=== PATIENT | male | born 2000 | race Caucasian/White ===

== ENCOUNTER 2019-04-30 15:04 | Outpatient (CLI) | payer BC | END 2019-04-30 15:05 | disposition home or self-care (01) | LOC: CTENTCT 15:04 | PROVIDERS: ATTEND Otolaryngology Plastic Surgery within the Head & Neck | DX: J01.81 Other acute recurrent sinusitis (principal) | CPT/HCPCS: 70486 ==

== ENCOUNTER 2019-05-13 10:35 | Day surgery (SDC) | payer BC ==
[2019-05-12 13:34] VITALS: BMI 21.7
[2019-05-13] MEDS ORDERED: Fentanyl 250 MCG/5 ML VIAL ONE (10:47)
[2019-05-13] MEDS ORDERED: Oxymetazoline HCl 0.05% ( 15 ML ) ONE ×2 (11:40→13:10)
[2019-05-13] MEDS ORDERED: Midazolam HCl 2 mg/2 ml Vial ONE (13:08)
[2019-05-13] MEDS ORDERED: Lidocaine 1% w/Epinephrine 1:100K 20 ML VIAL ONE (13:10)
[2019-05-13] MEDS ORDERED: Bacitracin Zinc Ointment 30 gm TUBE ONE (13:10)
[2019-05-13] MEDS ORDERED: Ondansetron PF 4 MG/2 ML Vial ONE (16:44)
[2019-05-13] MEDS ORDERED: Glycopyrrolate 0.2 MG/ML 5 ML SYRINGE ONE (16:44)
[2019-05-13] MEDS ORDERED: PROPOFOL 200 MG/20 ML VIAL ONE (16:44)
[2019-05-13] MEDS ORDERED: Lidocaine 1% PF 5 ML VIAL ONE (16:44)
[2019-05-13] MEDS ORDERED: Dexamethasone 20 MG/5 ML VIAL ONE (16:44)
[2019-05-13] MEDS ORDERED: Ketorolac Tromethamine 30 MG/ML VIAL ONE (16:44)
[2019-05-13] MEDS ORDERED: Rocuronium Bromide 10 MG/ML (10ML VIAL) ONE (16:44)
[2019-05-13] MEDS ORDERED: PHENYLEPHRINE-NS 100 MCG/ML 10 ML SYRINGE ONE (16:44)
--- NOTE | 2019-05-14 09:56 | OP ---
DATE OF PROCEDURE: 05/13/2019 PREOPERATIVE DIAGNOSES: 1. Right chronic rhinosinusitis. 2. Bilateral nasal polyposis. 3. Allergic fungal sinusitis. 4. Nasal septal deviation. 5. Bilateral inferior turbinate hypertrophy. POSTOPERATIVE DIAGNOSES: 1. Right chronic rhinosinusitis. 2. Bilateral nasal polyposis. 3. Allergic fungal sinusitis. 4. Nasal septal deviation. 5. Bilateral inferior turbinate hypertrophy. PROCEDURES PERFORMED: 1. Bilateral endoscopic sinus surgery, total ethmoidectomies with removal of tissue. 2. Bilateral endoscopic sinus surgery, maxillary antrostomies with removal of tissue. 3. Bilateral endoscopic sinus surgery, sphenoidotomies with removal of tissue. 4. Bilateral endoscopic sinus surgery, frontal sinusotomies with removal of tissue. 5. Nasal septoplasty. 6. Bilateral inferior turbinate submucosal resection. 7. LandmarX stereotactic navigational surgery. ESTIMATED BLOOD LOSS: 50 mL. COMPLICATIONS: None. ANESTHESIA: GETA. DESCRIPTION OF PROCEDURE: Patient was taken to the operating room and placed supine on the table. General endotracheal anesthesia was obtained by the anesthesia staff. Tube was secured in the left lower lip. Patient was then placed in the beach chair position, and Afrin pledgets were placed in the nasal cavity. Injections of 1% lidocaine with 1:100,000 epinephrine were made into the nasal septum as well as the inferior turbinates. Patient was then prepped and draped in standard surgical fashion for nasal surgery. Following this, the Afrin pledgets were removed. A Brenton incision was made on the left nasal septum. Submucoperichondrial dissection was performed. The deviated portions of the septum included portions of the cartilage and the bony septum. These isolated areas were removed using 3 cutting rongeurs. There was noted to be a large dorsal and caudal strut, left intact for support of the nose. The mucoperichondrial flaps were then reapproximated using a 4-0 gut stitch. Any straight pieces of cartilage were crushed prior to this and placed between the mucoperichondrial flaps. Following this, the inferior turbinates were then punctured with a submucosal coblation wand, and submucosal coblations were performed of multiple areas of the inferior portion of the anterior inferior turbinate. Following this, the [employer] image-guided system, which was previously set up and was calibrated and was noted to be within 1 mm accuracy was used with the 0-degree microdebrider to remove nasal polyps throughout the nasal cavity. This provided visualization of the lateral nasal wall structures. Following this, the middle turbinates were gently medialized using a Murphys elevator and the uncinate process has been anteriorly displaced secondary to nasal polyps and allergic fungal disease. The uncinate process was removed using the 0-degree microdebrider and the curved microdebrider bilaterally. Following this, the natural maxillary sinus ostia was widened and obstructed with nasal polyps. These nasal polyps were removed using 0-degree microdebrider and curved microdebrider. The fungal debris was encountered in the maxillary sinuses bilaterally and was removed using curved suctions and straight suctions. Following this, the ethmoidal bulla was identified and was punctured on its medial and inferior aspect using microdebrider. The ethmoidal bulla was then removed along with the anterior ethmoidal cells. Following this, the grand lamella was identified and was punctured into the posterior ethmoidal cells bilaterally. Working from posterior to anterior, using the 0-degree and 40-degree navigational microdebrider blades, the ethmoidal sinuses were opened. Nasal polyps and allergic fungal debris were encountered and was removed throughout the ethmoidal sinuses. Following this, the sphenoid sinuses were approached through the previous ethmoidectomies as the sphenoid sinus ostia were widened medially and inferiorly using the 0-degree microdebrider. Polypoid disease was removed from the sphenoid sinuses bilaterally. Following this, the 45-degree endoscope and the 40-degree microdebrider blade were used to further open the frontal recess cells and open the frontal sinus ostia. There were frontal cells that were penetrating into the frontal sinus and these were widened using the curved microdebrider under image-guided system. Allergic fungal debris was removed from the right side as well as the left side. Following this, the nasal cavity was irrigated. Mirapex was placed within the middle meatus. Pacheco splints were placed and secured. The patient tolerated the procedure well. Job ID: [id number]
== END 2019-05-13 16:30 | disposition home or self-care (01) ==
LOC: SDC 10:35
PROVIDERS: ATTEND Otolaryngology Plastic Surgery within the Head & Neck
PROC: 09BW8ZZ Excision of Right Sphenoid Sinus, Via Natural or Artificial Opening Endoscopic (ICD-10-PCS; principal; 2019-05-13)
PROC: 09TL0ZZ Resection of Nasal Turbinate, Open Approach (ICD-10-PCS; principal; 2019-05-13)
PROC: 09BR8ZZ Excision of Left Maxillary Sinus, Via Natural or Artificial Opening Endoscopic (ICD-10-PCS; principal; 2019-05-13)
PROC: 09BS8ZZ Excision of Right Frontal Sinus, Via Natural or Artificial Opening Endoscopic (ICD-10-PCS; principal; 2019-05-13)
PROC: 8E09XBZ Computer Assisted Procedure of Head and Neck Region (ICD-10-PCS; principal; 2019-05-13)
PROC: 09SM0ZZ Reposition Nasal Septum, Open Approach (ICD-10-PCS; principal; 2019-05-13)
PROC: 09BT8ZZ Excision of Left Frontal Sinus, Via Natural or Artificial Opening Endoscopic (ICD-10-PCS; principal; 2019-05-13)
PROC: 09TV8ZZ Resection of Left Ethmoid Sinus, Via Natural or Artificial Opening Endoscopic (ICD-10-PCS; principal; 2019-05-13)
PROC: 09BQ8ZZ Excision of Right Maxillary Sinus, Via Natural or Artificial Opening Endoscopic (ICD-10-PCS; principal; 2019-05-13)
PROC: 09BX8ZZ Excision of Left Sphenoid Sinus, Via Natural or Artificial Opening Endoscopic (ICD-10-PCS; principal; 2019-05-13)
PROC: 09TU8ZZ Resection of Right Ethmoid Sinus, Via Natural or Artificial Opening Endoscopic (ICD-10-PCS; principal; 2019-05-13)
DX: J32.9 Chronic sinusitis, unspecified (principal); J33.0 Polyp of nasal cavity; J34.2 Deviated nasal septum; J34.3 Hypertrophy of nasal turbinates; J45.909 Unspecified asthma, uncomplicated; Z98.890 Other specified postprocedural states
CPT/HCPCS: J0131; J1100; J1885; J2001; J2250; J2405; J2704; J3010